=== PATIENT | female | born 1995 | race African-American/Black ===

== ENCOUNTER 2017-02-10 21:28 | Emergency (ER) | payer BC ==
[~2017-02-10] VITALS: Ht 160 cm; Wt 56.3 kg
[~2017-02-10 21:28] MED LIST: ALBUTEROL17 GM IH; ATARAX,VISTARIL25 MG PO; BACTRIM,SEPT1 TABLET PO; CIPRO500 MG PO; DOCUSATE SODIU100 MG PO; ENDOCET 5-3251 EACH PO; HYOSCYAMINE0.125 MG PO; MACROBID100 MG PO; NAPROSYN500 MG PO; NORCO 5/3251 TABLET PO; ONDANSETRON ODT4 MG PO; PHENAZOPYRIDIN100 MG PO; PREDNISONE20 MG PO; STOOL SOFTENER250 MG PO; TAMSULOSIN HCL0.4 MG PO; VENTOLIN HFA18 GM IH; ZOFRAN ODT4 MG PO; ZOFRAN ODT8 MG PO; ZOFRAN4 MG PO
[2017-02-10 21:59] LABS: HEMATOCRIT 41.7 % (36.0-46.0); MCH 28.7 PG (29.0-34.0); MCHC 34.3 G/DL (30.0-36.0); MCV 83.6 FL (83-99); MEAN PLAT.VOLUME 10.9 uM^3 (9.5-12.4); PLATELET COUNT 227 K/uL (156-360); RBC DIS.WIDTH-CV 11.5 % (11.8-14.6); RBC DIS.WIDTH-SD 34.9 % (39-53); RED BLOOD COUNT 4.99 M/uL (3.80-5.20); WHITE BLOOD COUNT 7.7 K/uL (4.1-10.2)
[2017-02-10 22:12] LABS: CHLORIDE 101 mEq/L (99-109); POTASSIUM 3.5 mEq/L (3.7-5.4); SODIUM 135 mEq/L (136-147)
[2017-02-10 22:14] LABS: GLUCOSE 99 mg/dL (70-99)
[2017-02-10 22:15] LABS: ANION GAP 9 MEQ/L (2-14)
[2017-02-10 22:18] LABS: GFR ESTIMATE (CALCULATED) > 59 mL/min/
[2017-02-10 22:19] LABS: UREA NITROGEN (BUN) 8 mg/dL (9-23)
[2017-02-10 22:27] LABS: ADD MIUA? YES; BILIRUBIN NEGATIVE; BLOOD NEGATIVE; COLOR YELLOW ((YELLOW)); GLUCOSE (STRIP) NEGATIVE; KETONES NEGATIVE; LEUKOCYTES MODERATE; NITRITE NEGATIVE; PROTEIN (STRIP) NEGATIVE; SPECIFIC GRAVITY 1.017 (1.000-1.030); UROBILINOGEN 0.2 MG/DL (0.2-1.0)
[2017-02-10 22:35] LABS: BACTERIA RARE /HPF; EPITHELIAL CELLS 3+ /HPF; MUCUS TRACE /LPF; UCUL ADDED? NO
[2017-02-11 00:17] LABS: QUANTITATIVE HCG < 4.0 MIU/ML
[2017-02-11] MEDS ORDERED: PREDNISONE20 MG PO (01:38)
[2017-02-11] MEDS ORDERED: ZOFRAN4 MG PO (01:39)
[2017-02-11] MEDS ORDERED: HYCODAN SYRUP480 ML PO (01:39)
[2017-02-11 01:48] VITALS: BP 124/68
== END 2017-02-11 01:50 | disposition home or self-care (01) ==
LOC: EME 21:28
DX: J20.9 Acute bronchitis, unspecified (principal); J02.9 Acute pharyngitis, unspecified; R11.10 Vomiting, unspecified; Z87.891 Personal history of nicotine dependence
CPT/HCPCS: 71020; 80048; 81003; 84702; 85027; 87651 90; 94640; 99281; 99284; J7512

== ENCOUNTER 2017-06-05 10:35 | Emergency (ER) | payer BC ==
[~2017-06-05] VITALS: Ht 160 cm; Wt 58.2 kg
[~2017-06-05 10:35] MED LIST changes: +HYCODAN SYRUP480 ML PO
[2017-06-05 12:43] LABS: HEMATOCRIT 44.2 % (36.0-46.0); MCHC 34.4 G/DL (30.0-36.0); MCV 84.2 FL (83-99); RBC DIS.WIDTH-CV 11.9 % (11.8-14.6); RBC DIS.WIDTH-SD 35.5 % (39-53); RED BLOOD COUNT 5.25 M/uL (3.80-5.20); WHITE BLOOD COUNT 4.6 K/uL (4.1-10.2)
[2017-06-05 12:51] LABS: CHLORIDE 105 mEq/L (99-109); SODIUM 138 mEq/L (136-147)
[2017-06-05 12:53] LABS: GLUCOSE 87 mg/dL (70-99)
[2017-06-05 12:54] LABS: ANION GAP 13 MEQ/L (2-14)
[2017-06-05 12:57] LABS: GFR ESTIMATE (CALCULATED) > 59 mL/min/
[2017-06-05 12:58] LABS: UREA NITROGEN (BUN) 15 mg/dL (9-23)
[2017-06-05 13:25] LABS: MEAN PLAT.VOLUME 11.7 uM^3 (9.5-12.4); PLAT.SUFFICIENCY ADEQUATE; PLATELET COUNT 224 K/uL (156-360)
[2017-06-05 14:40] VITALS: BP 129/85
== END 2017-06-05 14:49 | disposition home or self-care (01) ==
LOC: EME 10:35
PROVIDERS: Physician Assistant
DX: G62.9 Polyneuropathy, unspecified (principal); F12.90 Cannabis use, unspecified, uncomplicated; Z82.49 Family history of ischemic heart disease and other diseases of the circulatory system; J45.909 Unspecified asthma, uncomplicated; I10 Essential (primary) hypertension; Z87.891 Personal history of nicotine dependence
CPT/HCPCS: 70450; 71020; 80048; 85027; 93005; 99281; 99284